=== PATIENT | female | born 2000 | race Caucasian/White ===

== ENCOUNTER 2020-12-09 06:10 | Day surgery (SDC) | payer BC ==
--- NOTE | 2020-12-03 14:43 | HP ---
DATE OF SURGERY: 12/09/2020 HISTORY OF PRESENT ILLNESS: The patient is a 19 year-old female that presents with complaints of bilateral chronic tonsillitis. States that at the end of September her tonsils have been swollen continuously. States they get scabbed at times and they are painful and irritated a lot. She once had some right cervical lymphadenopathy that did not really improve with penicillin. There is some lymphadenopathy in her cervical neck at this time. She does report that her voice is groggy due to the tonsils. She feels fullness in her throat when she swallows. The patient's mono test was negative. She had an ultrasound with some enlarged palatine tonsils and matted cervical lymphadenopathy bilaterally. PAST MEDICAL HISTORY: None. PAST SURGICAL HISTORY: None. ALLERGIES: AUGMENTIN. MEDICATIONS: Junel, Lexapro. FAMILY HISTORY: Reports mom had tonsil issues. SOCIAL HISTORY: Occasional alcohol. REVIEW OF SYSTEMS: CONSTITUTIONAL: Denies fever or chills. CHEST: Denies shortness of breath. CVS: Denies chest pain. ABDOMEN: Denies abdominal pain. HEENT: Bilaterally enlarged and red erythematous tonsils with right markedly enlarged. PHYSICAL EXAMINATION: GENERAL: No acute distress. HEENT: Right tonsil markedly enlarged, left moderate enlargement, bilateral erythema. CHEST: Nonlabored. No shortness of breath. CVS: Regular rate and rhythm. ABDOMEN: Soft. EXTREMITIES: No edema. NEUROLOGIC: Alert. PSYCHIATRIC: Appropriate. IMPRESSION: Chronic tonsillitis bilateral. PLAN: Bilateral tonsillectomy and adenoidectomy with Dr. Torsten Herman. As dictated by Kianna Lim NP.
[2020-12-09] MEDS ORDERED: Lactated Ringers 1,000 ML IV SCH (06:30)
[2020-12-09] MEDS ORDERED: Lactated Ringers 1,000 ML IV ONE ×2 (07:02→08:57)
[2020-12-09] MEDS ORDERED: BRIDION 200MG/2ML IV ONE (08:03)
[2020-12-09] MEDS ORDERED: Xylocaine-Mpf 2% 5 Ml Vial ONE (08:03)
[2020-12-09] MEDS ORDERED: DIPRIVAN 200 MG/20 ML IV ONE (08:03)
[2020-12-09] MEDS ORDERED: Decadron 4 MG INJ ONE (08:03)
[2020-12-09] MEDS ORDERED: SUBLIMAZE 100 MCG/2 ML ONE ×2 (08:03→09:39)
[2020-12-09] MEDS ORDERED: Versed 2 MG/2 ML Injection ONE (08:03)
[2020-12-09] MEDS ORDERED: Zofran 4 MG/2 ML VIAL ONE (08:03)
[2020-12-09] MEDS ORDERED: Zemuron 100 MG/10 ML ONE (08:03)
[2020-12-09] MEDS ORDERED: KEFZOL 1 GM ONE (08:39)
[2020-12-09] MEDS ORDERED: MORPHINE SULFATE 2 MG INJ IV ONE (10:33)
--- NOTE | 2020-12-09 12:54 | OP ---
SURGERY DATE/TIME: 12/09/2020 0826 PREOPERATIVE DIAGNOSIS: Recurrent chronic tonsillitis. POSTOPERATIVE DIAGNOSIS: Recurrent chronic tonsillitis. PROCEDURE: Bilateral tonsillectomy. SURGEON: Torsten Herman M.D. ANESTHESIA: General. COMPLICATIONS: None. CONDITION: Stable. ESTIMATED BLOOD LOSS: None. DRAINS: None. INDICATION: A patient with recurrent chronic tonsillitis. She has had nonstop tonsillitis here for six to eight months refractory to care. She has very cryptic left tonsil, very hypertrophied right tonsil with sulfa granules. She was offered tonsillectomy DESCRIPTION OF PROCEDURE: She was taken to surgery. General anesthetic. Routine draped. Traditional mouth gag. Left tonsil addressed first. Pillar scored. Left tonsil was trying to fracture up but was able to be held intact. The anterior pillar scored a little bit at the top, a little bit more out laterally. At this time it was able to be grasped. It was taken down to the base of the tongue and then the entire posterior half was sequentially taken down to the posterior pillar and delivered off the posterior pillar. No additional cautery was necessary. The field was dry. The right side was just the opposite rather than being cryptic and scarred up. It was hypertrophied, swollen and edematous. It looked like there had been one abscess at some time down to the bottom right posterior corner where there is a little more intense scarring. It was rolled out of tonsillar fossa, delivered off the base of the tongue, delivered down to the posterior pillar. At this time hemostasis was excellent throughout and it was delivered off posterior pillar. On re-inspection both left and right anterior and posterior pillars are intact. Uvula intact. There was no bleeding. There was no residual tonsillar tissue at the tongue. Uvula elevated. One small blip in the midline was cauterized. Field is dry. The mechanical retractor placed. The field re-inspected and satisfactory. Findings discussed with the family in the waiting room.
[2020-12-09 13:50] VITALS: O2SAT 100
[2020-12-09 13:54] VITALS: BP 128/67; PULSE 60
== END 2020-12-09 12:20 | disposition home or self-care (01) ==
LOC: SDC 06:10
PROVIDERS: ATTEND Surgery
DX: J03.91 Acute recurrent tonsillitis, unspecified (principal)
CPT/HCPCS: 84703; J0690; J1100; J2250; J2270; J2405; J2704; J3010